=== PATIENT | male | born 1995 | race Caucasian/White ===

== ENCOUNTER 2016-08-25 20:25 | Emergency (ER) | payer OTHER ==
[~2016-08-25] VITALS: Ht 177.8 cm; Wt 83.0 kg
[~2016-08-25 20:25] MED LIST: CEPH-443 PO
[2016-08-25 20:28] VITALS: Ht 177.8 cm; Wt 83.0 kg
--- NOTE | 2016-08-25 20:56 | ERD ---
ER Documentation Chief Complaint Date/Time DATE: 08/25/16 TIME: 20:53 Chief Complaint scalp laceration box fell on his head HPI This 21-year-old male who presents the emergency department today for a laceration on his head. Patient states he was moving boxes earlier today when a box fell on his head. Denies any loss of consciousness, nausea vomiting, dizziness, headache. States that his head just hurts in the area where the cut is. ROS All systems reviewed and are negative except as per history of present illness. Medications Home Meds Active Scripts Acetaminophen* (Tylophen*) 500 Mg Capsule, 1 CAP PO Q6H Y for PAIN AND OR ELEVATED TEMP, #30 CAP Prov:CHINA ORONA PA-C 08/25/16 Cephalexin* (Keflex*) 500 Mg Capsule, 500 MG PO QID for 5 Days, CAP Prov:CHERELLE MARTINEZ PA-C 02/20/15 Allergies Allergies: Coded Allergies: Sulfa (Sulfonamide Antibiotics) (Verified Allergy, Unknown, 02/20/15) PMhx/Soc History of Surgery: No Anesthesia Reaction: No Hx Neurological Disorder: No Hx Respiratory Disorders: No Hx Cardiac Disorders: No Hx Psychiatric Problems: No Hx Miscellaneous Medical Probl: No Hx Alcohol Use: Yes Hx Substance Use: No Hx Tobacco Use: Yes (10 CIGS/DAY) Smoking Status: Current every day smoker Physical Exam Vitals Vital Signs Date Time Temp Pulse Resp B/P Pulse Ox O2 Delivery O2 Flow Rate FiO2 08/25/16 20:28 99.4 86 20 146/95 96 Physical Exam Const: No acute distress Head: Scalp laceration on top of head approximately 3 cm with small hematoma Eyes: Normal Conjunctiva. PERRLA. EOM intact ENT: Normal External Ears, Nose and Mouth. Neck: Full range of motion..~ No meningismus. Resp: Clear to auscultation bilaterally Cardio: Regular rate and rhythm, no murmurs Abd: Soft, non tender, non distended. Normal bowel sounds Skin: Scalp laceration approximately 3 cm Neur: Awake and alert Psych: Normal Mood and Affect Procedures/MDM Is a 21-year-old male who presents the emergency department today for a scalp laceration that he sustained earlier this evening when a box fell on top of his head. Patient denies any loss of consciousness. He is afebrile and otherwise well-appearing. He does not appear to have any focal neurologic deficits and no gait ataxia and I do not feel he requires a head CT scan at this time. Low suspicion for fracture, abscess, mass, acute hemorrhage. I explained to the patient that in order to close the laceration we would need to staple the area. I explained the risks and benefits of the procedure and patient agreed to proceed. The area was cleaned in the usual sterile fashion. Patient tolerated the procedure well and there were no complications. 4 gilmar were used to close the wound. Patient was instructed to return in 48 hours for a wound check and again in 7-10 days for staple removal. Patient understood. Patient was given a prescription for Tylenol for home. He declined any pain medication here in the emergency department. At this time the patient is stable for discharge and outpatient management. Patient should follow up with their PCP in the next 1-2 days. They may return to the emergency department sooner for any persistent or worsening of symptoms. Patient understood and agreed with the plan. Departure Diagnosis: Primary Impression: Laceration Condition: CHINA Carlson PA-C Aug 25, 2016 20:56
[2016-08-25] MEDS ORDERED: ACET500C5 PO (21:33)
== END 2016-08-25 21:47 | disposition home or self-care (01) ==
LOC: FTE 20:25
DX: S01.01XA Laceration without foreign body of scalp, initial encounter (principal); F17.210 Nicotine dependence, cigarettes, uncomplicated; W20.8XXA Other cause of strike by thrown, projected or falling object, initial encounter; Y92.9 Unspecified place or not applicable
CPT/HCPCS: 12002; Z7502

== ENCOUNTER 2016-08-26 01:22 | Emergency (ER) | payer OTHER ==
[~2016-08-26] VITALS: Ht 172.7 cm; Wt 83.5 kg
[~2016-08-26 01:22] MED LIST changes: +ACET500C5 PO
[2016-08-26 01:24] VITALS: Ht 172.7 cm; Wt 83.5 kg
--- NOTE | 2016-08-26 02:11 | ERD ---
ER Documentation Chief Complaint Date/Time DATE: 08/26/16 TIME: 02:00 Chief Complaint scalp laceration HPI 21 year-old male presents to emergency department for evaluation, patient has a bleeding within the frontal area of the sCALP, patient was seen here in emergency department earlier today had gilmar placed for a scalp laceration, when he showered at home, he noticed more bleeding, he noticed a wound in the frontal aspect of his scalp. Patient was just to be checked. Patient does not have any other symptoms. Patient's up-to-date with his tetanus vaccine. ROS All systems reviewed and are negative except as per history of present illness. Medications Home Meds Active Scripts Acetaminophen* (Tylophen*) 500 Mg Capsule, 1 CAP PO Q6H Y for PAIN AND OR ELEVATED TEMP, #30 CAP Prov:CHINA ORONA PA-C 08/25/16 Cephalexin* (Keflex*) 500 Mg Capsule, 500 MG PO QID for 5 Days, CAP Prov:CHERELLE MARTINEZ PA-C 02/20/15 Allergies Allergies: Coded Allergies: Sulfa (Sulfonamide Antibiotics) (Verified Allergy, Unknown, 02/20/15) PMhx/Soc History of Surgery: No Anesthesia Reaction: No Hx Neurological Disorder: No Hx Respiratory Disorders: No Hx Cardiac Disorders: No Hx Psychiatric Problems: No Hx Miscellaneous Medical Probl: No Hx Alcohol Use: Yes Hx Substance Use: No Hx Tobacco Use: Yes (10 CIGS/DAY) Smoking Status: Current every day smoker FmHx Family History: No coronary disease, No diabetes, No other Physical Exam Vitals Vital Signs Date Time Temp Pulse Resp B/P Pulse Ox O2 Delivery O2 Flow Rate FiO2 08/26/16 01:24 97.8 94 20 147/88 98 Physical Exam GENERAL: The patient is well developed and appropriate for usual state of health, in no apparent distress. CHEST: Clear to auscultation bilaterally. There are no rales, wheezes or rhonchi. HEART: Regular rate and rhythm. No murmurs, clicks, rubs or gallops. No S3 or S4. ABDOMEN: Soft, nontender and nondistended. Good bowel sounds. No rebound or guarding. No gross peritonitis. No gross organomegaly or masses. No Granados sign or McBurney point tenderness. BACK: No midline or flank tenderness. EXTREMITIES: Equal pulses bilaterally. There is no peripheral clubbing, cyanosis or edema. No focal swelling or erythema. Full range of motion. Grossly neurovascularly intact. NEURO: Alert and oriented. Cranial nerves 2-12 intact. Motor strength in all 4 extremities with 5/5 strength. Sensation grossly intact. Normal speech and gait. SKIN: Noted abrasion in the frontal aspect of the scalp, bleeding is controlled at this time. Noted scalp laceration that was stapled in place, gilmar are in place, no opening of the wound. There is no apparent ecchymosis or petechia. The skin is warm and dry. HEMATOLOGIC AND LYMPHATIC: There is no evidence of excessive bruising or lymphedema. No gross cervical, axillary, or inguinal lymphadenopathy. Procedures/MDM Medical decision making: Patient has an abrasion in the frontal aspect of the scalp, wound repair not necessary at this time. Bleeding is controlled at this time. No symptoms of any neurologic emergencies. Patient states the wound is in place, no gaping of the wound noted. Patient was advised to continue taking medications as prescribed. Patient was advised to return to emergency department for worsening symptoms. Wound recheck in 2 days with primary care doctor. Departure Diagnosis: Primary Impression: Scalp abrasion Encounter type: initial encounter Qualified Code: S00.01XA - Scalp abrasion , initial encounter Condition: Stable Patient Instructions: CAROL Gordon NP Aug 26, 2016 02:11
== END 2016-08-26 02:21 | disposition home or self-care (01) ==
LOC: FTE 01:22
DX: S00.01XA Abrasion of scalp, initial encounter (principal); F17.210 Nicotine dependence, cigarettes, uncomplicated; X58.XXXA Exposure to other specified factors, initial encounter; Y92.9 Unspecified place or not applicable
CPT/HCPCS: 99283

== ENCOUNTER 2016-09-01 15:05 | Emergency (ER) | payer OTHER ==
[~2016-09-01] VITALS: Ht 170.2 cm; Wt 83.5 kg
[2016-09-01 15:07] VITALS: Ht 170.2 cm; Wt 83.5 kg
--- NOTE | 2016-09-01 18:41 | ERD ---
ER Documentation Chief Complaint Date/Time DATE: 09/01/16 TIME: 18:40 Chief Complaint Pt here for marbella removal from head LAc 7 days ago. HPI Patient is a 21-year-old male with no medical problems who presents for staple removal. He said that 7 days ago he had 4 marbella placed to his scalp. He has no pus from the wound. He has no fevers. He has no pain. He just came to get his marbella removed. ROS All systems reviewed and are negative except as per history of present illness. Medications Home Meds Active Scripts Acetaminophen* (Tylophen*) 500 Mg Capsule, 1 CAP PO Q6H Y for PAIN AND OR ELEVATED TEMP, #30 CAP Prov:CHINA ORONA PA-C 08/25/16 Cephalexin* (Keflex*) 500 Mg Capsule, 500 MG PO QID for 5 Days, CAP Prov:CHERELLE MARTINEZ PA-C 02/20/15 Allergies Allergies: Coded Allergies: Sulfa (Sulfonamide Antibiotics) (Verified Allergy, Unknown, 09/01/16) PMhx/Soc Medical and Surgical Hx: pt denies Medical Hx, pt denies Surgical Hx History of Surgery: No Anesthesia Reaction: No Hx Neurological Disorder: No Hx Respiratory Disorders: No Hx Cardiac Disorders: No Hx Psychiatric Problems: No Hx Miscellaneous Medical Probl: No Hx Alcohol Use: Yes Hx Substance Use: No Hx Tobacco Use: No Smoking Status: Former smoker FmHx Family History: No diabetes Physical Exam Vitals Vital Signs Date Time Temp Pulse Resp B/P Pulse Ox O2 Delivery O2 Flow Rate FiO2 09/01/16 15:07 98.9 79 18 134/78 96 Physical Exam Const: No acute distress Head: Atraumatic Eyes: Normal Conjunctiva ENT: Normal External Ears, Nose and Mouth. Neck: Full range of motion..~ No meningismus. Resp: Clear to auscultation bilaterally Cardio: Regular rate and rhythm, no murmurs Abd: Soft, non tender, non distended. Normal bowel sounds Skin: Marbella to the scalp are clean, dry, and intact Back: No midline or flank tenderness Ext: No cyanosis, or edema Neur: Awake and alert Psych: Normal Mood and Affect Procedures/MDM Staple Removal by me: 4 marbella removed with staple remover without incident. Wound shows no evidence of infection, foreign body, neurologic injury, vascular injury, open joint or tendon laceration. Patient to follow up PRN. Departure Diagnosis: Primary Impression: Encounter for removal of marbella Condition: Fair Patient Instructions: Staple Removal, No Complication Referrals: [facility] (PCP) Additional Instructions: Call your primary care doctor TOMORROW for an appointment during the next 1 WEEK.Tell the medical secretary that you were referred from this facility.See the doctor sooner or return here if your condition worsens before your appointment time. SEAMUS MOHAMUD MD Sep 01, 2016 18:41
== END 2016-09-01 16:24 | disposition home or self-care (01) ==
LOC: FTE 15:05
DX: Z48.02 Encounter for removal of sutures (principal); Z87.891 Personal history of nicotine dependence
CPT/HCPCS: 99281

== ENCOUNTER 2016-11-09 16:56 | Emergency (ER) | payer OTHER ==
[~2016-11-09] VITALS: Ht 175.3 cm; Wt 82.0 kg
[2016-11-09 17:00] VITALS: Ht 175.3 cm; Wt 82.0 kg
--- NOTE | 2016-11-09 18:18 | ERD ---
ER Documentation Chief Complaint Date/Time DATE: 11/09/16 TIME: 18:16 Chief Complaint nausea & vomitting since last night HPI This 21-year-old male patient presents to emergency department for nausea and vomiting possible contaminated food . pt and ate at a buffet . pt ate oysters and didn't . pt reports vomiting started last night and has continued threw today. States that he is only vomited once today but feels if he eats anything he will vomit has been able to drink water, denies dizziness, body aches, or headache. ROS All systems reviewed and are negative except as per history of present illness. Medications Home Meds Active Scripts Acetaminophen* (Tylophen*) 500 Mg Capsule, 1 CAP PO Q6H Y for PAIN AND OR ELEVATED TEMP, #30 CAP Prov:CHINA ORONA PA-C 08/25/16 Cephalexin* (Keflex*) 500 Mg Capsule, 500 MG PO QID for 5 Days, CAP Prov:CHERELLE MARTINEZ PA-C 02/20/15 Allergies Allergies: Coded Allergies: Sulfa (Sulfonamide Antibiotics) (Verified Allergy, Unknown, 09/01/16) PMhx/Soc Medical and Surgical Hx: pt denies Medical Hx, pt denies Surgical Hx History of Surgery: No Anesthesia Reaction: No Hx Neurological Disorder: No Hx Respiratory Disorders: No Hx Cardiac Disorders: No Hx Psychiatric Problems: No Hx Miscellaneous Medical Probl: No Hx Alcohol Use: Yes Hx Substance Use: No Hx Tobacco Use: No Physical Exam Vitals Vital Signs Date Time Temp Pulse Resp B/P Pulse Ox O2 Delivery O2 Flow Rate FiO2 11/09/16 17:00 97.9 97 20 147/84 98 Vitals stable, triage notes reviewed Physical Exam Const: Nourished, well-hydrated, well-appearing 21-year-old male patient in no acute distress Head: Eyes: Normal Conjunctiva, PERRLA, EOMI ENT: Normal External Ears, Nose and Mouth membranes moist. Neck: . Resp: Cardio: Abd: Soft, tympanic to percussion left-sided tenderness upper and lower quadrant. No CVA tenderness no epigastric tenderness Skin: Back: No midline or flank tenderness Ext: Neur: Awake and alert Psych: Normal Mood and Affect Results 24 hrs Current Medications Medications (Trade) Dose Ordered Sig/Shu Route PRN Reason Start Time Stop Time Status Last Admin Dose Admin Ondansetron HCl (Zofran Odt) 4 mg ONCE STAT ODT 11/09/16 18:19 11/09/16 18:21 DC 11/09/16 18:39 Procedures/MDM This 21-year-old male patient presents to emergency department for evaluation of suspected food poisoning. Patient states he ate oysters from a buffet last night with his , states his is a vegetarian and does not eat fish otherwise they both ate the same thing and she is not sick. Patient reports vomiting started last night continued through this morning he last vomited earlier this morning. Patient reports he has not been able to eat solid food today. Has been able to drink water. He denies body aches, fever, or headache. Denies dizziness, shortness of breath, or chest pain. He today's plan includes Zofran and a p.o. fluid challenge. Patient was able to drink 120 cc of water prior to discharge. Plan to discharge patient home with Zofran 4 mg 1 tab p.o. every 8 hours as needed nausea, clear liquid diet advance as tolerated. Follow-up with primary physician if symptoms fail to improve as anticipated. Patient was given a note to be off work tomorrow. Patient is stable with no new complaints during ER course, clinically there is no current evidence to suggest bowel obstruction, appendicitis, acute abdomen, urinary tract infection, brain aneurysm, pancreatitis, cholecystitis, or any other emergent condition appearing to require further evaluation or hospitalization. I feel the patient is stable for discharge at this time. I have discussed results, examination findings, the treatment plan with the patient and family present prior to discharge. Indications for emergent reevaluation, side effects of medication were also discussed. All questions were answered. Patient verbalizes understanding and agrees with plan of care. Departure Diagnosis: Primary Impression: Nausea and vomiting Vomiting type: unspecified Vomiting Intractability: non-intractable Qualified Code: R11.2 - Non-intractable vomiting with nausea, unspecified vomiting type Condition: Good Patient Instructions: Nausea and Vomiting-Adult [facility]errals: [facility] Additional Instructions: Thank you for for coming to [facility] for your care today. Please ask your nurse or provider if you have questions about your care today and do not leave until all your questions have been answered. Please use any medications given as directed and follow-up with your doctor (or the doctor you were referred to) in the next 2-3 days. If you do not have a primary care doctor you may follow up at the community [facility] - [facility] (listed below). You may also use motrin and tylenol as needed for fever and/or pain unless instructed otherwise by your provider or nurse. Indications for more urgent follow-up have been discussed, but you may return to the Emergency Department at ANY time for any worrisome or worsening symptoms. If you have abdominal pain, please know that no test or exam you received is perfect and you should follow up within 8 hours for continued pain. If you had any imaging studies today, such as an X-Ray or CT Scan, these studies will be reviewed later by a radiologist. You will be called if there are important findings that were not identified today, so make sure the contact information you provided at registration is correct. If you received any narcotic pain control medicine today, such as Vicodin, Morphine or Dilaudid, your coordination and judgment may be affected for a number of hours. Please do not drive or operate heavy machinery, and you may want someone to assist you at home. If you were given a prescription for narcotic medication, be aware that it is very addictive- use sparingly and only if necessary. FREDDIE RODRIGUEZ Nov 09, 2016 18:18
[2016-11-09] MEDS ORDERED: ONDANSETRON (ODT) 4 MG TAB ODT STA (18:19)
[2016-11-09] MEDS ORDERED: ONDA4TAB14 PO (18:57)
[2016-11-09 19:37] VITALS: BP 142/95; PULSE 74; RESP 16
== END 2016-11-09 19:40 | disposition home or self-care (01) ==
LOC: FTE 16:56
DX: R11.2 Nausea with vomiting, unspecified (principal)
CPT/HCPCS: Z7502; Z7610; 99283

== ENCOUNTER 2017-01-27 18:26 | Emergency (ER) | payer SELFPAY ==
[~2017-01-27] VITALS: Ht 177.8 cm; Wt 84.5 kg
[~2017-01-27 18:26] MED LIST changes: +ONDA4TAB14 PO
[2017-01-27 18:36] VITALS: Ht 177.8 cm; Wt 84.5 kg
[2017-01-28] MEDS ORDERED: IBUP-1542 PO (10:12)
[2017-01-28] MEDS ORDERED: ORPH100T PO (10:12)
== END 2017-01-27 20:30 | disposition left against medical advice (07) ==
LOC: FTE 18:26
DX: Z53.21 Procedure and treatment not carried out due to patient leaving prior to being seen by health care provider (principal)

== ENCOUNTER 2017-01-28 08:19 | Emergency (ER) | payer OTHER ==
[~2017-01-28] VITALS: Wt 100.0 kg
[2017-01-28] MEDS ORDERED: IBUPROFEN 600 MG TAB PO ONE (09:30)
--- NOTE | 2017-01-28 09:54 | RADRPT ---
PROCEDURE: XR ribs. CLINICAL INDICATION: Chest pain. TECHNIQUE: PA and oblique views of the chest and left ribs were obtained. COMPARISON: None. Chest x-ray FINDINGS: No evidence of rib fracture or pneumothorax. No soft tissue or osseous abnormality. The cardiomedias tinal silhouette is within normal limits of size. Atherosclerotic calcification of the aorta. The vi sualized lungs are clear without pleural effusion or focal consolidation. IMPRESSION: 1. No evidence of rib fracture or pneumothorax. 2. No acute intrathoracic abnormality. RPTAT:AAJJ Physician Mariam Date Time Electronically viewed and signed by Physician Mariam on 01/28/2017 09:54 DEE/
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
[2017-01-28] MEDS ORDERED: ORPH100T PO (10:12)
[2017-01-28] MEDS ORDERED: IBUP-1542 PO (10:12)
[2017-01-28 10:28] VITALS: BP 140/62; PULSE 68; RESP 20; TEMP 98.3
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
== END 2017-01-28 10:25 | disposition home or self-care (01) ==
LOC: FTE 08:19
DX: R07.89 Other chest pain (principal); R07.81 Pleurodynia
CPT/HCPCS: 71010; 71100; 93005; Z7502; Z7610

== ENCOUNTER → 2018-05-24 | Emergency (ER) | payer OTHER ==
[~2018-05-24] VITALS: Ht 170.2 cm; Wt 86.0 kg
[~2018-05-24] MED LIST changes: +IBUP-1542 PO; +KETOROLAC 30 MG INJ IM STA; +NAPR-985 PO; +ORPH100T PO; +TRAM50TA2 PO
[2018-05-24 18:48] VITALS: BP 142/70; PULSE 75; RESP 16; Ht 170.2 cm; Wt 86.0 kg
--- NOTE | 2018-05-24 21:03 | ERD ---
ER Documentation Chief Complaint Chief Complaint Pt reports back pain after a fall Thursday HPI 23-year-old male with no past medical surgical history who presents with complaint of lower back pain after sustaining a fall at home on Thursday. he tripped on on the steps in his home and fell on his tailbone. Since that time is having worsening pain. He denies any red flag symptoms such as urinary or bowel incontinence, saddle anesthesia, lower extremity weakness or numbness. At time of exam patient able to ambulate and in no acute distress. States he has a job where he is required to do strenuous activity and requests a note for work excuse today. ROS All systems reviewed and are negative except as per history of present illness. Medications Home Meds Active Scripts Tramadol HCl (Tramadol HCl) 50 Mg Tablet, 50 MG PO Q4 PRN for PAIN, #7 TAB Prov:MIGUEL A GOODMAN PA-C 05/24/18 Naproxen* (Naprosyn*) 500 Mg Tablet, 500 MG PO BID PRN for PAIN AND/OR INFLAMMATION, #30 TAB Prov:MIGUEL A GOODMAN PA-C 05/24/18 Orphenadrine Citrate (Norflex) 100 Mg Tablet.sa, 100 MG PO BID for 5 Days, TAB.SA Prov:SHERLYN BARRIGA 01/28/17 Ibuprofen* (Motrin*) 600 Mg Tab, 600 MG PO Q6, #30 TAB Prov:SHERLYN BARRIGA 01/28/17 Ondansetron (Ondansetron Odt) 4 Mg Tab.rapdis, 4 MG PO Q6H PRN for NAUSEA AND/OR VOMITING, #10 TAB Prov:MICHAEL,MELODY 11/09/16 Acetaminophen* (Tylophen*) 500 Mg Capsule, 1 CAP PO Q6H PRN for PAIN AND OR ELEVATED TEMP, #30 CAP Prov:CHINA ORONA PA-C 08/25/16 Cephalexin* (Keflex*) 500 Mg Capsule, 500 MG PO QID for 5 Days, CAP Prov:CHERELLE MARTINEZ PA-C 02/20/15 Allergies Allergies: Coded Allergies: Sulfa (Sulfonamide Antibiotics) (Verified Allergy, Unknown, 01/28/17) PMhx/Soc Medical and Surgical Hx: pt denies Medical Hx, pt denies Surgical Hx History of Surgery: No Anesthesia Reaction: No Hx Neurological Disorder: No Hx Respiratory Disorders: No Hx Cardiac Disorders: No Hx Psychiatric Problems: No Hx Miscellaneous Medical Probl: No Hx Alcohol Use: Yes (social) Hx Substance Use: No Hx Tobacco Use: No Smoking Status: Never smoker FmHx Family History: No diabetes, No coronary disease, No other Physical Exam Vitals Vital Signs Date Temp Pulse Resp B/P (MAP) Pulse Ox O2 O2 Flow FiO2 Time Delivery Rate 05/24/18 98.2 75 16 142/70 99 18:48 (94) Physical Exam I have reviewed the triage vital signs. Const: Well nourished, well developed, appears stated age Eyes: PERRL, no conjunctival injection HENT: NCAT, Neck supple without meningismus CV: RRR, Warm, well-perfused extremities RESP: CTAB, Unlabored respiratory effort GI: soft, non-tender, non-distended, no masses MSK: No gross deformities appreciated, some tenderness to area of tailbone, no paraspinal tenderness, no signs of gross deformity, full ROM to b/l LE, negative straight leg test Skin: Warm, dry. No rashes Neuro: grossly non focal Psych: Appropriate mood and affect. Results 24 hrs Current Medications Medications Dose Sig/Shu Start Time Status Last (Trade) Ordered Route PRN Stop Time Admin Dose Reason Admin Ketorolac 30 mg ONCE STAT 05/24/18 DC 05/24/18 Tromethamine IM 20:57 05/24/18 21:03 (Toradol) 20:59 Procedures/MDM 23-year-old healthy male presents with complaint of lower back pain after fall. Low suspicion for acute cord compression or cauda equina at this time, given presentation and symptoms, including epidural abscess or hematoma. Patient has no history of malignancy, active or distant history. Patient has no unexplained weight loss. No recent fevers, rigors, malaise, or recent infection. No history of IVDU or skin-popping. Patient does not have any history concerning for saddle anesthesia/perianal sensory loss or complaining of decreased rectal tone. Patient does not have urinary retention or inability to control urine from overflow. Patient has no tenderness overlying spinous process. Patient has no focal weakness on examination. Given exam and history, low suspicion for cord compression, cauda equina, epidural abscess/hematoma. Distally neurovascularly intact. Query likely musculoskeletal component. No imaging indicated given low grade fall. Discussed pain control,and follow up with PMD. Cautious return precautions discussed w/ full understanding DISPOSITION PLAN: We discussed follow up with the patient's primary care doctor within 24 to 48 hours. Patient counseled regarding my diagnostic impression and care plan. Prior to discharge all questions answered. Pt agrees with treatment plan and understands strict return precautions. Precautionary instructions provided including instructions to return to the ER if not improving or for any worsening or changing symptoms or concerns. Departure Diagnosis: Primary Impression: Back pain Condition: Stable MIGUEL A GOODMAN PA-C May 24, 2018 21:03
== END | disposition home or self-care (01) ==
LOC: FTE 18:28
DX: M54.5 Low back pain (principal)
CPT/HCPCS: 96372; J1885; Z7502

== ENCOUNTER 2018-06-07 12:18 | Emergency (ER) | payer OTHER ==
[~2018-06-07] VITALS: Wt 75.0 kg
[~2018-06-07 12:18] MED LIST changes: -KETOROLAC 30 MG INJ IM STA
[2018-06-07 12:21] VITALS: BP 151/74; PULSE 87; RESP 20
[2018-06-07] MEDS ORDERED: AMOX500C2 PO (12:55)
[2018-06-07] MEDS ORDERED: NAPR-985 PO (12:55)
[2018-06-07] MEDS ORDERED: TRAM50TA2 PO (12:55)
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
== END 2018-06-07 14:12 | disposition home or self-care (01) ==
LOC: E/R 12:18
DX: J02.9 Acute pharyngitis, unspecified (principal)
CPT/HCPCS: 99283

== ENCOUNTER 2018-06-20 14:55 | Emergency (ER) | payer OTHER ==
[~2018-06-20] VITALS: Wt 85.5 kg
[~2018-06-20 14:55] MED LIST changes: +AMOX500C2 PO
[2018-06-20 14:59] VITALS: BP 159/79; PULSE 89; RESP 20
[2018-06-20] MEDS ORDERED: IBUP-1542 PO (17:36)
[2018-06-20] MEDS ORDERED: BACITUD TOP (17:36)
--- NOTE | 2018-06-20 20:10 | ERD ---
ER Documentation Chief Complaint Chief Complaint r. hand pain s/p trauma last night HPI 23-year-old male patient with no significant past medical history presents the ED stating that he was cutting trees, is left-handed and some wooden logs approximately crushed his bilateral hands. Denies any fever, chills, loss s ensation, loss of range of motion, increased redness. Patient is up-to-date with his vaccines, his tetanus shot, 2 years ago. Denies any head or neck injuries. Reports that moving his right hand, is more painful. ROS All systems reviewed and are negative except as per history of present illness. Medications Home Meds Active Scripts Ibuprofen* (Motrin*) 600 Mg Tab, 600 MG PO Q6, #30 TAB Prov:XAVIER DAVE PA-C 06/20/18 Bacitracin* (Bacitracin Oint (UD)*) 1 Applic Oint, 1 APPLIC TOP ONCE, #7 PKT APPLY TO Prov:XAVIER DAVE PA-C 06/20/18 Amoxicillin* (Amoxicillin*) 500 Mg Cap, 500 MG PO TID for 10 Days, CAP Prov:TONIE MARTINS MD 06/07/18 Naproxen* (Naprosyn*) 500 Mg Tablet, 500 MG PO BID PRN for PAIN AND/OR INFLAMMATION, #30 TAB Prov:TONIE MARTINS MD 06/07/18 Tramadol HCl (Tramadol HCl) 50 Mg Tablet, 50 MG PO Q4 PRN for PAIN, #20 TAB Prov:TONIE MARTINS MD 06/07/18 Tramadol HCl (Tramadol HCl) 50 Mg Tablet, 50 MG PO Q4 PRN for PAIN, #7 TAB Prov:MIGUEL A GOODMAN PA-C 05/24/18 Naproxen* (Naprosyn*) 500 Mg Tablet, 500 MG PO BID PRN for PAIN AND/OR INFLAMMATION, #30 TAB Prov:MIGUEL A GOODMAN PA-C 05/24/18 Orphenadrine Citrate (Norflex) 100 Mg Tablet.sa, 100 MG PO BID for 5 Days, TAB .SA Prov:DEBORAH BARRIGANA C 01/28/17 Ibuprofen* (Motrin*) 600 Mg Tab, 600 MG PO Q6, #30 TAB Prov:NITHYAHSERLYN C 01/28/17 Ondansetron (Ondansetron Odt) 4 Mg Tab.rapdis, 4 MG PO Q6H PRN for NAUSEA AND/OR VOMITING, #10 TAB Prov:FREDDIE RODRIGUEZ 11/09/16 Acetaminophen* (Tylophen*) 500 Mg Capsule, 1 CAP PO Q6H PRN for PAIN AND OR ELEVATED TEMP, #30 CAP Prov:CHINA ORONA PA-C 08/25/16 Cephalexin* (Keflex*) 500 Mg Capsule, 500 MG PO QID for 5 Days, CAP Prov:CHERELLE MARTINEZ PA-C 02/20/15 Allergies Allergies: Coded Allergies: Sulfa (Sulfonamide Antibiotics) (Verified Allergy, Unknown, 01/28/17) PMhx/Soc Medical and Surgical Hx: pt denies Medical Hx, pt denies Surgical Hx History of Surgery: No Anesthesia Reaction: No Hx Neurological Disorder: No Hx Respiratory Disorders: No Hx Cardiac Disorders: No Hx Psychiatric Problems: No Hx Miscellaneous Medical Probl: No Hx Alcohol Use: Yes (OCCASIONAL) Hx Substance Use: Yes (MARIJUANA) Hx Tobacco Use: Yes Smoking Status: Current every day smoker Physical Exam Vitals Vital Signs Date Temp Pulse Resp B/P (MAP) Pulse Ox O2 O2 Flow FiO2 Time Delivery Rate 06/20/18 97.8 89 20 159/79 99 14:59 (105) Physical Exam Const: [id number], well-nourished. In no acute distress. Head: Atraumatic, normocephalic Eyes: Normal Conjunctiva without injection ENT: Normal external ear, nose and mouth. Neck: Full range of motion. No meningismus. Resp: Clear to auscultation bilaterally. No wheezing, rhonchi, rales, or crackles. No accessory muscle use. No retractions. Cardio: Regular rate and rhythm, no murmurs Skin: No petechiae or rashes Back: No midline tenderness. No CVA tenderness. Ext: No cyanosis, or edema. Cap refill less than 2 seconds. Distal pulses intact bilaterally. Abrasions noted of the dorsal aspect of patient's right hand with a healing laceration at the base of patient's third finger. Full range of motion of the DIP, PIP, MCP joints bilaterally. Neur: Awake and alert. Normal gait and coordination. Muscle strength 5/5. Sensation intact bilaterally. Psych: Normal Mood and Affect Procedures/MDM 23-year-old male patient with no significant past medical history presents ED complaining of bilateral hand injuries. Patient is afebrile and nontoxic- appearing IMPRESSION: Normal x-ray of the right wrist. IMPRESSION: Soft tissue swelling with no acute fracture. Patient is placed in an sunita wrap. Splint Assessment: Neurovascularly intact pre and post splint placement with good fit. Likely has a contusion, did not sustain any fractures or dislocations of the x- ray, wrist x-ray. Patient does not want a left hand x-ray has full range of motion of the DIP, PIP, MCP joints and had no tenderness palpation. Patient's extremity symptoms have stabilized while they have been evaluated in the department and are appropriate for outpatient follow up. No evidence of fractures, dislocations, compartment syndrome, neurologic injury, vascular injury, open joint, open fracture, tendon laceration, septic arthritis, osteomyelitis, DVT, foreign body, or other emergent conditions. Diagnosis: Hand injury, Abrasion Discharge medications: Ibuprofen Follow up with primary care physician in 1-2 days. Instructed patient to return to the ED sooner for any worsening symptoms. Patient's questions were answered. Patient is hemodynamically stable. Patient understood and agreed with discharge plan. Patient discharged stable. Disclaimer: Inadvertent spelling and grammatical errors are likely due to EHR/dictation software use and do not reflect on the overall quality of patient care. Also, please note that the electronic time recorded on this note does not necessarily reflect the actual time of the patient encounter. Departure Diagnosis: Primary Impression: Hand injury Encounter type: initial encounter Laterality: right Qualified Codes: S69.91XA - Unspecified injury of right wrist, hand and finger(s), initial encounter Condition: Stable Patient Instructions: Abrasion, Crush Injury, Hand/Finger Referrals: [facility] ([facility]) [facility] YOU HAVE RECEIVED A MEDICAL SCREENING EXAM AND THE RESULTS INDICATE THAT YOU DO NOT HAVE A CONDITION THAT REQUIRES URGENT TREATMENT IN THE EMERGENCY DEPARTMENT. FURTHER EVALUATION AND TREATMENT OF YOUR CONDITION CAN WAIT UNTIL YOU ARE SEEN IN YOUR DOCTORS OFFICE WITHIN THE NEXT 1-2 DAYS. IT IS YOUR RESPONSIBILITY TO MAKE AN APPOINTMENT FOR FOLOW-UP CARE. IF YOU HAVE A PRIMARY DOCTOR --you should call your primary doctor and schedule an appointment IF YOU DO NOT HAVE A PRIMARY DOCTOR YOU CAN CALL OUR PHYSICIAN REFERRAL HOTLINE AT IF YOU CAN NOT AFFORD TO SEE A PHYSICIAN YOU CAN CHOSE FROM THE FOLLOWING [facility] [address] [facility] [address] [facility] [address] [facility] [address] [facility] [address] [facility] [facility] [address] [facility]. [facility] YOU HAVE RECEIVED A MEDICAL SCREENING EXAM AND THE RESULTS INDICATE THAT YOU DO NOT HAVE A CONDITION THAT REQUIRES URGENT TREATMENT IN THE EMERGENCY DEPARTMENT. FURTHER EVALUATION AND TREATMENT OF YOUR CONDITION CAN WAIT UNTIL YOU ARE SEEN IN YOUR DOCTORS OFFICE WITHIN THE NEXT 1-2 DAYS. IT IS YOUR RESPONSIBILITY TO MAKE AN APPOINTMENT FOR FOLOW-UP CARE. IF YOU HAVE A PRIMARY DOCTOR --you should call your primary doctor and schedule and appointment IF YOU DO NOT HAVE A PRIMARY DOCTOR YOU CAN CALL OUR PHYSICIAN REFERRAL HOTLINE AT . IF YOU CAN NOT AFFORD TO SEE A PHYSICIAN YOU CAN CHOSE FROM THE FOLLOWING [facility] INSTITUTIONS[facility] [address] [place] [address] [facility] [address] [place] [address] [facility] [address] [place] [address] [facility] Urgent Care 7 a.m.- 11 p.m. Every Day of the Week NO APPOINTMENT OR AUTHORIZATION NEEDED SO [facility] Hours: Mon-Fri 9:00 AM - 5:00 PM Additional Instructions: Call your primary care doctor TOMORROW for an appointment during the next 2-3 days for a referral to see an orthopedic physician if symptoms do not improve.See the doctor sooner or return here if your condition worsens before your appointment time. XAVIER DAVE PA-C Jun 20, 2018 20:10
== END 2018-06-20 17:48 | disposition home or self-care (01) ==
LOC: FTE 14:55
DX: S60.511A Abrasion of right hand, initial encounter (principal); F17.210 Nicotine dependence, cigarettes, uncomplicated; W26.8XXA Contact with other sharp object(s), not elsewhere classified, initial encounter; Y92.9 Unspecified place or not applicable
CPT/HCPCS: 73110; 73130; Z7610